=== PATIENT | male | born 1975 | race Hispanic/Latino ===

== ENCOUNTER 2019-06-11 21:29 | Inpatient (IN) | payer BC, OTHER ==
[~2019-06-11] VITALS: Ht 175.3 cm; Wt 118.2 kg
[~2019-06-11 21:29] MED LIST: FENO135C4 PO; GLYB1TAB3 PO; GLYB1TAB32 PO; LEVO500T2 PO; LISI40TA4 PO; PIOG45TA64 PO; TRAM50TA4 PO
[2019-06-11] MEDS ORDERED: ACETAMINOPHEN EXTRA STRENGTH 500 MG TABLET ONE (22:19)
[2019-06-11] MEDS ORDERED: KETOROLAC TROMETHAMINE 30MG/ML ONE (22:19)
[2019-06-11] MEDS ORDERED: MORPHINE SULFATE 4 MG/1ML SYG ONE (22:19)
[2019-06-11] MEDS ORDERED: SODIUM CHLORIDE 0.9% 1000ML 1,000 ML IV ONE (22:20)
[2019-06-11 22:23] LABS: BASOPHILS % (AUTO) 0.2 % (0.0-5.0); EOSINOPHILS % (AUTO) 0.8 % (0.0-8.0); HEMATOCRIT 35.5 % (42-54); LYMPHOCYTES % (AUTO) 13.3 % (21.0-51.0); MEAN CORPUSCULAR HGB CONC 33.5 g/dL (32.0-36.0); MEAN CORPUSCULAR VOLUME 89.4 fL (79-99); MONOCYTES % (AUTO) 7.4 % (3.0-13.0); NEUTROPHILS % (AUTO) 77.9 % (40.0-77.0); PLATELET COUNT (AUTO) 197 K/uL (130-400); RED BLOOD CELL COUNT(AUTO) 3.97 MIL/uL (4.50-6.20); RED CELL DISTRIBUTION WIDTH 13.1 % (11.0-15.5); WHITE BLOOD COUNT (AUTO) 10.3 K/uL (4.8-10.8)
[2019-06-11 22:24] LABS: APPEARANCE,URINE Clear (CLEAR); BILIRUBIN,URINE Negative (NEGATIVE); COLOR,URINE Yellow (YELLOW); GLUCOSE, URINE (UA) >=1000 mg/dL (NEGATIVE); KETONES,URINE Negative (NEGATIVE); LEUKOCYTE ESTERASE ,URINE Negative (NEGATIVE); NITRATE,URINE Negative (NEGATIVE); OCCULT BLOOD,URINE Trace (NEGATIVE); PROTEIN,URINE Negative (NEGATIVE)
[2019-06-11 22:32] LABS: BACTERIA,URINE Few /HPF (None Seen); MUCUS,URINE Few LPF (None Seen); SQUAMOUS EPITHELIAL CELL,UR 0-2 /HPF (0-2)
[2019-06-11 22:38] LABS: CREATININE 1.3 mg/dL (0.5-1.5); POTASSIUM 3.8 mmol/L (3.5-5.1)
[2019-06-11] MEDS ORDERED: CEFTRIAXONE SODIUM 2 GM VIAL ONE (23:04)
[2019-06-11] MEDS ORDERED: SODIUM CHLORIDE 0.9% 100 ML IV ONE (23:05)
[2019-06-11] MEDS ORDERED: INSULIN HUMULIN R 100 UNIT/ML 3ML ONE (23:05)
[2019-06-11] MEDS ORDERED: DOXYCYCLINE HYCLATE 100 MG TABLET PO ONE (23:31)
[2019-06-12] MEDS ORDERED: SODIUM CHLORIDE 0.9% 1000ML 1,000 ML IV SCH (01:15)
[2019-06-12] MEDS ORDERED: SODIUM CHLORIDE 0.9% 1000ML 1,000 ML IV ONE (02:02)
[2019-06-12 04:00] VITALS: BP 119/60
[2019-06-12 08:00] VITALS: BP 122/71
[2019-06-12] MEDS: CEFTRIAXONE SODIUM 1 GM IVP SCH (08:30)
[2019-06-12] MEDS ORDERED: TRAMADOL HCL 50 MG TABLET PO PRN (08:30)
[2019-06-12] MEDS: SODIUM CHLORIDE 0.9% 1000ML 1,000 ML IV SCH ×2 (08:30→22:18)
[2019-06-12] MEDS: CLINDAMYCIN 600 MG/D5% WATER 50 ML IV SCH ×3 (11:01→17:16)
[2019-06-12] MEDS: INSULIN HUMULIN R 100 UNIT/ML 3ML SQ SCH ×3 (11:04→22:20)
[2019-06-12 11:44] VITALS: BP 130/74
--- NOTE | 2019-06-12 14:50 | NUR ---
INITIAL Patient lives with spouse, Rosetta Zhu, [phone]. No home services. DME: glucometer (no insulin). 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 He is able to complete ADL's and drives. PCP is Dr. Pineda. Pharmacy is [facility] in [place]. DCP is home. Addendum: 06/12/19 at 1452 by TIANA HONG SS Amended: Links added.
[2019-06-12] MEDS ORDERED: ATOR20TA65 PO (15:39)
[2019-06-12] MEDS ORDERED: FENO145T26 PO (15:40)
[2019-06-12 15:52] VITALS: BP 126/61
[2019-06-12] MEDS: GLYBURIDE/METFORMIN HCL 5/500MG TABLET PO SCH (17:15)
[2019-06-12 19:49] VITALS: BP 132/62
[2019-06-12] MEDS ORDERED: PHARMACY COMMUNICATION MISC SCH (20:00)
[2019-06-12] MEDS: ATORVASTATIN CALCIUM 20 MG TABLET PO SCH (22:18)
[2019-06-12 23:57] VITALS: BP 120/65
[2019-06-13] MEDS: CLINDAMYCIN 600 MG/D5% WATER 50 ML IV SCH ×4 (00:06→16:55)
[2019-06-13 04:00] VITALS: BP 119/65
[2019-06-13 06:04] LABS: CREATININE 1.1 mg/dL (0.5-1.5); POTASSIUM 3.7 mmol/L (3.5-5.1)
[2019-06-13 06:18] LABS: BAND NEUTROPHILS % (MANUAL) 3 % (0-2); LYMPHOCYTES % (MANUAL) 20 % (22-44); MAN.DIFF COMMENT-IMPRESSION MANUAL DIFFERENTIAL; MONOCYTES % (MANUAL) 5 % (2-9); REACTIVE LYMPHOCYTES 1 % (0-0); SEGMENTED NEUTROPHILS % 71 % (40-70)
[2019-06-13 06:22] LABS: HEMATOCRIT 31.4 % (42-54); MEAN CORPUSCULAR HEMOGLOBIN 29.6 pg (27.0-33.0); MEAN CORPUSCULAR HGB CONC 32.5 g/dL (32.0-36.0); PLATELET COUNT (AUTO) 189 K/uL (130-400); RED BLOOD CELL COUNT(AUTO) 3.45 MIL/uL (4.50-6.20); RED CELL DISTRIBUTION WIDTH 13.2 % (11.0-15.5); WHITE BLOOD COUNT (AUTO) 8.4 K/uL (4.8-10.8)
[2019-06-13] MEDS: INSULIN HUMULIN R 100 UNIT/ML 3ML SQ SCH ×4 (06:45→21:00)
[2019-06-13 08:00] VITALS: BP 132/72
[2019-06-13] MEDS: PIOGLITAZONE HCL 45 MG TAB PO SCH (08:27)
[2019-06-13] MEDS: GLYBURIDE/METFORMIN HCL 5/500MG TABLET PO SCH ×2 (08:27→16:55)
[2019-06-13] MEDS: FENOFIBRATE NANOCRYSTALLIZED 145 MG TAB PO SCH (08:27)
[2019-06-13] MEDS: LISINOPRIL 40 MG TABLET PO SCH (08:27)
[2019-06-13] MEDS: CEFTRIAXONE SODIUM 1 GM IVP SCH (08:27)
[2019-06-13 11:41] VITALS: BP 115/64
[2019-06-13] MEDS: SODIUM CHLORIDE 0.9% 1000ML 1,000 ML IV SCH ×2 (11:43→21:09)
[2019-06-13 16:00] VITALS: BP 121/67
[2019-06-13 19:57] VITALS: BP 124/76
[2019-06-13] MEDS: ATORVASTATIN CALCIUM 20 MG TABLET PO SCH (21:07)
[2019-06-14] VITALS (7 sets, daily range): BP systolic 110–137; BP diastolic 55–74
[2019-06-14] MEDS: CLINDAMYCIN 600 MG/D5% WATER 50 ML IV SCH ×5 (00:58→21:56)
[2019-06-14 05:34] LABS: HEMATOCRIT 32.2 % (42-54); MEAN CORPUSCULAR HEMOGLOBIN 29.9 pg (27.0-33.0); MEAN CORPUSCULAR HGB CONC 32.9 g/dL (32.0-36.0); PLATELET COUNT (AUTO) 195 K/uL (130-400); RED BLOOD CELL COUNT(AUTO) 3.54 MIL/uL (4.50-6.20); RED CELL DISTRIBUTION WIDTH 12.8 % (11.0-15.5); WHITE BLOOD COUNT (AUTO) 7.7 K/uL (4.8-10.8)
[2019-06-14 05:40] LABS: BAND NEUTROPHILS % (MANUAL) 2 % (0-2); BASOPHILS % (MANUAL) 1 % (0-2); EOSINOPHILS % (MANUAL) 1 % (1-6); LYMPHOCYTES % (MANUAL) 20 % (22-44); MAN.DIFF COMMENT-IMPRESSION MANUAL DIFFERENTIAL; MONOCYTES % (MANUAL) 3 % (2-9); PLATELET MORPHOLOGY COMMENT ADEQUATE; SEGMENTED NEUTROPHILS % 73 % (40-70)
[2019-06-14] MEDS: INSULIN HUMULIN R 100 UNIT/ML 3ML SQ SCH ×4 (05:40→21:00)
[2019-06-14 05:56] LABS: ALBUMIN 2.4 g/dL (3.5-5.0); BILIRUBIN,TOTAL 0.3 mg/dL (0.2-1.0); CREATININE 1.2 mg/dL (0.5-1.5); POTASSIUM 3.6 mmol/L (3.5-5.1)
[2019-06-14] MEDS: LISINOPRIL 40 MG TABLET PO SCH (08:25)
[2019-06-14] MEDS: FENOFIBRATE NANOCRYSTALLIZED 145 MG TAB PO SCH (08:25)
[2019-06-14] MEDS: GLYBURIDE/METFORMIN HCL 5/500MG TABLET PO SCH ×2 (08:47→17:26)
[2019-06-14] MEDS: CEFTRIAXONE SODIUM 1 GM IVP SCH (08:48)
[2019-06-14] MEDS: PIOGLITAZONE HCL 45 MG TAB PO SCH (09:07)
--- NOTE | 2019-06-14 10:00 | NUR ---
PT AAO X 3 REVIEW PLAN OF CARE, ASK PT IF HIS SWELLING HAD COME DOWN, . PT STATED THAT HE HAS HIS SCROTUM ELEVATED UP ON TOWELS . . NO PAIN VOICED , WILL GET PT A SCROTOL SUPPORT FOR HIM TO WEAR, CALL LIGHT IN REACH, ,
[2019-06-14] MEDS: SODIUM CHLORIDE 0.9% 1000ML 1,000 ML IV SCH (17:14)
[2019-06-14 19:55] LABS: APPEARANCE,URINE Clear (CLEAR); BILIRUBIN,URINE Negative (NEGATIVE); COLOR,URINE Yellow (YELLOW); GLUCOSE, URINE (UA) 500 mg/dL (NEGATIVE); KETONES,URINE Negative (NEGATIVE); LEUKOCYTE ESTERASE ,URINE Trace (NEGATIVE); NITRATE,URINE Negative (NEGATIVE); OCCULT BLOOD,URINE Negative (NEGATIVE); PH,URINE 6.5 (5.0-8.0); PROTEIN,URINE Negative (NEGATIVE)
[2019-06-14 20:01] LABS: BACTERIA,URINE Few /HPF (None Seen); RBC,URINE None Seen /HPF (0-1)
[2019-06-14] MEDS: ATORVASTATIN CALCIUM 20 MG TABLET PO SCH (21:55)
[2019-06-15 04:20] VITALS: BP 119/68
[2019-06-15 05:00] LABS: HEMATOCRIT 29.8 % (42-54); MEAN CORPUSCULAR HGB CONC 33.2 g/dL (32.0-36.0); MEAN CORPUSCULAR VOLUME 90.3 fL (79-99); PLATELET COUNT (AUTO) 212 K/uL (130-400); RED CELL DISTRIBUTION WIDTH 12.9 % (11.0-15.5); WHITE BLOOD COUNT (AUTO) 6.5 K/uL (4.8-10.8)
[2019-06-15] MEDS: SODIUM CHLORIDE 0.9% 1000ML 1,000 ML IV SCH (06:23)
[2019-06-15] MEDS: CLINDAMYCIN 600 MG/D5% WATER 50 ML IV SCH (06:23)
[2019-06-15] MEDS: INSULIN HUMULIN R 100 UNIT/ML 3ML SQ SCH ×2 (06:32→11:30)
[2019-06-15 07:20] LABS: CREATININE 1.2 mg/dL (0.5-1.5); POTASSIUM 3.6 mmol/L (3.5-5.1)
[2019-06-15] MEDS: GLYBURIDE/METFORMIN HCL 5/500MG TABLET PO SCH (07:26)
[2019-06-15] MEDS: LISINOPRIL 40 MG TABLET PO SCH (07:26)
[2019-06-15] MEDS: FENOFIBRATE NANOCRYSTALLIZED 145 MG TAB PO SCH (07:27)
[2019-06-15] MEDS: CEFTRIAXONE SODIUM 1 GM IVP SCH (07:27)
[2019-06-15 07:30] VITALS: BP 116/55
[2019-06-15] MEDS: PIOGLITAZONE HCL 45 MG TAB PO SCH (09:31)
[2019-06-15] MEDS ORDERED: AMOX-429 PO (09:46)
--- NOTE | 2019-06-15 11:45 | NUR ---
DISCHARGE SUMMARY WAS DONE ,PER DISCHARGE NURSE Kevin BEST LVN, PT TO FOLLOW WITH PRIVATE DR, AND APPT. TO FOLLOW WITH DR. MONCADA SL TO HIS LAC WAS DC, SM PRESSURE DRSG APPLICATION ON .
== END 2019-06-15 11:45 | disposition home or self-care (01) | DRG 728 ==
LOC: EDH 21:29 → EDHIP 06-12 00:55 → OBSVTOIN 06-12 00:55 → 4DH 06-12 02:09
PROVIDERS: ADMIT Internal Medicine Nephrology; ATTEND Internal Medicine Nephrology
DX: N45.3 Epididymo-orchitis (principal); E87.1 Hypo-osmolality and hyponatremia; I10 Essential (primary) hypertension; E78.00 Pure hypercholesterolemia, unspecified; E66.9 Obesity, unspecified; E78.5 Hyperlipidemia, unspecified; N43.3 Hydrocele, unspecified; E11.9 Type 2 diabetes mellitus without complications; Z91.19 Patient's noncompliance with other medical treatment and regimen; Z68.38 Body mass index [BMI] 38.0-38.9, adult
CPT/HCPCS: 36415; 76870; 80048; 80053; 81001; 82948; 83605; 85025; 85027; 87040; 87088; G0378; J0696; J1815; J1885; J2270; J3490; J7030

== ENCOUNTER 2025-03-26 16:54 | Emergency (ER) | payer BC ==
[~2025-03-26] VITALS: Ht 152.4 cm; Wt 114.3 kg
[~2025-03-26 16:54] MED LIST changes: +AMOX-429 PO; +ATOR20TA65 PO; -FENO135C4 PO; +FENO145T26 PO; +GLYB-173 PO; -GLYB1TAB32 PO; -LEVO500T2 PO; +LISI40TA15 PO; -LISI40TA4 PO; -TRAM50TA4 PO
--- NOTE | 2025-03-26 17:15 | ERN ---
ED Note History of Present Illness Stated Complaint: FEVER Chief Complaint: Flu Symptoms Time Seen by MD: 17:01 Dictation: PATIENT IS A 49-YEAR-OLD MALE COMING IN TODAY WITH COMPLAINTS OF FEVER CHILLS AND FLU-LIKE SYMPTOMS ONSET THIS MORNING WHILE HE WAS AT WORK. 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 HE DENIES NAUSEA VOMITING NO DIARRHEA NO LOSS OF TASTE OR SMELL. STATES HE WENT TO A DOCTOR TODAY WHO SWABBED HIM FOR FLU AND COVID, DID NOT GIVE HIM ANY RESULTS. SHE STATED SHE WAS GOING TO GIVE HIM ANTIBIOTICS, TAMIFLU AND SOMETHING FOR FEVER UNTIL THE RESULTS CAME BACK. HE WAS NOT HAPPY WITH HER MANAGEMENT IN THE CLINIC AND CAME TO THE EMERGENCY ROOM FOR FURTHER EVALUATION AND WANTS A MORE COMPREHENSIVE WORK UP. Allergies: Coded Allergies: No Known Allergies (Verified Allergy, Unknown, 02/20/15) Home Meds Active Scripts Amoxicillin/Potassium Clav (Augmentin 875-125 Tablet) 1 Each Tablet, 1 EACH PO BID for 7 Days, #15 TAB Prov:LG SHAY MD 06/15/19 Reported Medications Fenofibrate Nanocrystallized (Fenofibrate) 145 Mg Tablet, 145 MG PO DAILY, TAB 06/12/19 Atorvastatin Calcium (Atorvastatin Calcium) 20 Mg Tablet, 20 MG PO HS, TAB 06/12/19 Pioglitazone HCl (Pioglitazone HCl) 45 Mg Tablet, 45 MG PO DAILY, TAB 02/21/15 Glyburide/Metformin HCl (Glyburide-Metformin 5-500 mg) 1 Each Tablet, 2 EACH PO HS, TAB 02/21/15 Glyburide/Metformin HCl (Glyburide/Metformin 5/500Mg) 1 Tab Tablet, 2 TAB PO [id number], TAB 02/21/15 Lisinopril (Lisinopril) 40 Mg Tablet, 40 MG PO DAILY, TAB 02/21/15 Past Medical History Past Medical History: Diabetes-Type II Surgical History: None RN Note Reviewed/Agreed w/PFSH: Yes Review of System Dictation CONSTITUTIONAL: NEGATIVE EXCEPT FOR HPI FEVER CHILLS/BODY ACHES HEAD/FACE: NEGATIVE EXCEPT FOR HPI EENT: NEGATIVE EXCEPT FOR HPI RESPIRATORY: NEGATIVE EXCEPT FOR HPI GASTROINTESTINAL/ABDOMINAL: NEGATIVE EXCEPT FOR HPI GENITOURINARY: NEGATIVE EXCEPT FOR HPI MUSCULOSKELETAL: NEGATIVE EXCEPT FOR HPI INTEGUMENTARY: NEGATIVE EXCEPT FOR HPI NEUROLOGICAL/PSYCH: NEGATIVE EXCEPT FOR HPI HEMATOLOGIC/LYMPHATIC: NEGATIVE EXCEPT FOR HPI ALL SYSTEMS NEGATIVE, EXCEPT NOTED ABOVE. 13 POINT REVIEW OF SYSTEMS ASSESSED AND ALL NEGATIVE EXCEPT FOR ABOVE. Initial Vital Sign VS Vital Signs Date Time Temp Pulse Resp B/P (MAP) Pulse Ox O2 Delivery O2 Flow Rate FiO2 03/26/25 16:55 100.0 125 18 140/81 99 03/26/25 19:13 Room Air* 0 21 Physical Exam Dictation VITAL SIGNS REVIEWED GENERAL APPEARANCE: ALERT, ORIENTED X 3, MILD ACUTE DISTRESS, WELL DEVELOPED, NOURISHED. OBESE HEAD AND FACE: NON-TRAUMATIC. EYES: PERRL, PINK CONJUNCTIVAS, EYELID NO TRAUMA, ANTERIOR CHAMBER WITH ARCUS SENILIS. EARS: PINNAS INTACT AND NO SIGNS OF TRAUMA OR ERYTHEMA EAR CANALS CLEAR AND NO DISCHARGE TM NO ERYTHEMA NOSE: N CLEAR ISCHARGE, NO BLEEDING. OROPHARYNX: MOUTH NORMAL, TONGUE PINK, PHARYNX CLEAR,N MILD PHARYNGEAL ERYTHEMA, TONSILS NO EXUDATES, NO ABSCESSES NOTED, MUCOUS MEMBRANE MOIST UVULA MIDLINE, VOICE IS CLEAR NECK: SUPPLE, NON-TENDER, NO THYROMEGALY, NO MASSES, NO JVD, NO BRUITS BREAST:DEFERRED CHEST:NO TENDERNESS, NO CREPITUS, NO PARADOXICAL MOVEMENT, NO RETRACTIONS LUNGS:CLEAR, WELL-VENTILATED, SYMMETRIC, NO RALES, NO WHEEZING, NO RHONCHI, NO STRIDOR, GOOD BREATH SOUNDS BILATERALLY HEART: REGULAR RATE, REGULAR RHYTHM, NO MURMUR, NO GALLOPS VASCULAR: NO PERIPHERAL EDEMA, ABDOMEN: SOFT, POSITIVE BOWEL SOUNDS, NONDISTENDED, NO GUARDING, NONTENDER, NO REBOUND, NO MASSES NO HEPATOMEGALY, NO SPLENOMEGALY, NO CORDON'S SIGN, NO HERNIAS. RECTAL: DEFERRED GENITAL: DEFERRED NEUROLOGICAL: NORMAL SPEECH, MOTOR FUNCTION INTACT, SENSORY FUNCTION INTACT MUSCULOSKELETAL: NECK NONTENDER, FULL RANGE OF MOTION, BACK NONTENDER, FULL RANGE OF MOTION, EXTREMITIES: NONTENDER, FULL RANGE OF MOTION SKIN: COLOR PINK, DRY, NO TURGOR, NO RASH, NO LACERATIONS, NO ABRASIONS, NO CONTUSIONS. LYMPHATIC: DEFERRED Results (Laboratory/Radiology) Laboratory/Radiology Laboratory Tests Test 03/26/25 17:21 03/26/25 17:33 White Blood Count 14.2 K/uL (4.8-10.8) H Red Blood Count 4.32 MIL/uL (4.50-6.20) L Hemoglobin 13.4 g/dL (14.0-18.0) L Hematocrit 39.2 % (42-54) L Mean Corpuscular Volume 90.7 fL (79-99) Mean Corpuscular Hemoglobin 31.0 pg (27.0-33.0) Mean Corpuscular Hemoglobin Concent 34.2 g/dL (32.0-36.0) Red Cell Distribution Width 13.7 % (11.0-15.5) Platelet Count 214 K/uL (130-400) Mean Platelet Volume 11.1 fL (7.5-10.5) H Immature Granulocyte % (Auto) 0.6 % (0-1) Neutrophils (%) (Auto) 86.1 % (40.0-77.0) H Lymphocytes (%) (Auto) 6.0 % (21.0-51.0) L Monocytes (%) (Auto) 6.3 % (3.0-13.0) Eosinophils (%) (Auto) 0.6 % (0.0-8.0) Basophils (%) (Auto) 0.4 % (0.0-5.0) Neutrophils # (Auto) 12.2 K/uL (1.8-7.7) H Lymphocytes # (Auto) 0.9 K/uL (1.0-4.8) L Monocytes # (Auto) 0.9 K/uL (0.1-1.0) Eosinophils # (Auto) 0.09 K/uL (0.00-0.70) Basophils # (Auto) 0.05 K/uL (0.00-0.20) Absolute Immature Granulocyte (auto 0.08 K/uL (0-1) Nucleated Red Blood Cells 0.0 % (0.0-0.19) White Cell Morphology Comment See comments Sodium Level 136 mmol/L (136-145) Potassium Level 3.8 mmol/L (3.5-5.1) Chloride Level 104 mmol/L (101-111) Carbon Dioxide Level 21 mmol/L (21-32) Blood Urea Nitrogen 20 mg/dL (7-18) H Creatinine 1.5 mg/dL (0.5-1.3) H Glomerular Filtration Rate Calc 56 mL/min (>90) Random Glucose 202 mg/dL (70-105) H Lactic Acid Level 2.1 mmol/L (0.8-2.5) Total Calcium 9.4 mg/dL (8.5-10.1) Urine Color LIGHT-YELLOW (YELLOW) Urine Appearance CLEAR (CLEAR) Urine pH 5.0 (5.0-8.0) Urine Specific [place] 1.036 (1.001-1.031) Urine Protein NEGATIVE mg/dL (NEGATIVE) Urine Glucose (UA) >=1000 mg/dL (NEGATIVE) H Urine Ketones NEGATIVE mg/dL (NEGATIVE) Urine Occult Blood +- (TRACE) (NEGATIVE) H Urine Nitrate NEGATIVE (NEGATIVE) Urine Bilirubin NEGATIVE mg/dL (NEGATIVE) Urine Urobilinogen 0.2 mg/dL (0.2-1.0) Urine Leukocyte Esterase 75 Pilar/uL (NEGATIVE) H Urine RBC 2-5 /HPF (0-1) H Urine WBC 51-100 /HPF (0-1) H Urine Bacteria None /HPF (None Seen) Influenza Type A Antigen Negative For Type A Influenza Type B Antigen Negative For Type B SARS-CoV-2 Antigen (Rapid) PRESUMPTIVE NEGATIVE Group A Streptococcus Rapid positive (NEGATIVE) *A Labs Reviewed?: Yes ED Course ED Course Orders Procedure Category Date Status Time Covid19 (Sars Antigen LAB 03/26/25 Complete Rapid) 17:10 Influenza Type A & B, LAB 03/26/25 Complete Rapid 17:10 Rapid (Group A Strep) LAB 03/26/25 Complete 17:10 Urinalysis Profile LAB 03/26/25 Complete 17:10 Cbc With Differential LAB 03/26/25 Complete 17:10 Basic Metabolic Panel LAB 03/26/25 Complete 17:10 Blood Cult KARLA 03/26/25 In Process 17:12 Lactic Acid LAB 03/26/25 Complete 17:12 Ibuprofen 800 Mg Tab PHA 03/26/25 Complete (Motrin) 17:30 Culture Urine KARLA 03/26/25 In Process 17:47 Amox/Clav 875/125mg PHA 03/26/25 Logged Tab (Augmentin 875-1 20:30 Current Medications Medications (Trade) Dose Ordered Sig/Chuckie Route PRN Reason Start Time Stop Time Status Last Admin Dose Admin Amoxicillin/ Clavulanate Potassium (Augmentin 875-125 Tablet) 1 each ONCE ONCE PO 03/26/25 20:30 03/26/25 20:31 UNV Ibuprofen (moTRIN) 800 mg ONCE ONCE PO 03/26/25 17:30 03/26/25 17:31 DC 03/26/25 17:24 Vital Signs Date Time Temp Pulse Resp B/P (MAP) Pulse Ox O2 Delivery O2 Flow Rate FiO2 03/26/25 19:13 99.0 92 18 132/74 99 Room Air* 0 21 03/26/25 17:24 100.0 03/26/25 16:55 100.0 125 18 140/81 99 2007/patient will be discharged home with a acute streptococcal tonsillitis, acute UTI, uncontrolled diabetes, dehydration, fever. He will be given [id number] in the emergency room Discharged home with controlled meds and told to see his doctor Saturday without fail and no work until cleared by his Medical Decision Making MDM MDM: Differential diagnosis: SARS COVID/influenza strep//UTI/electrolyte imb alance/dehydration/viral syndrome Rationale: Tests considered and ordered secondary to shared decision making include: Labs/r Previous outside records reviewed: Old ER visits. Risk of complication and/or morbidity or mortality of patient management: None Medications-Per medication reconciliation Need for hospitalization: Patient does not meet criteria for hospitalization. None Need for emergency major/minor surgery: No There are no social concerns with this patient. Prescription drug management Augmentin Prescriptions will include symptomatic care Patient's prior external medical records from other ER visits were reviewed by me as indicated. Prior testing and results from previous visits were reviewed. Prior tests were taken into account with medical decision making and resource utilization, independent historian/historians were used to obtain complete medical history. I independently interpreted the test that were performed, results were reviewed by me and considered findings on radiology if ordered. Medical management and examination interpretation discussions were had by me with other qualified healthcare professionals as indicated for the patient's care. DX & DISP Disposition: Discharge Departure Impression: Primary Impression: Acute streptococcal tonsillitis Additional Impressions: Acute cystitis, Dehydration, Uncontrolled diabetes mellitus, Fever Condition: Stable Scripts Ibuprofen (Ibuprofen 800 mg Tab) 800 Mg Tab 800 MG PO Q8H PRN for fever or pain, #30 TAB 0 Refills Prov: JOHN ROJO TRANSLATIONAL SPECIALIST 03/26/25 Amoxicillin/Potassium Clav (Amox Tr-K Clv 875-125 mg Tab) 875 Mg-125 Mg Tablet 1 EACH PO BID for 7 Days, #14 TAB 0 Refills Prov: JOHN ROJO 03/26/25 Additional Instructions: Follow-up with primary care provider in 1 to 2 days. Take medications as directed here in the emergency room. Okay to continue home medications unless otherwise discussed during your visit in the emergency room today. Return to your nearest emergency room if symptoms worsen or if there is no improvement. Call 911 if you need immediate assistance. Take Tylenol or Motrin [id number] as needed and if no contraindications are present. Increase oral hydration. A wound culture or urine culture was ordered here in the emergency room department please follow-up with primary care provider and advise them to get repeat ports from our facility. If you had any Sher wrap/splints that were applied here, please do not remove them until you see your primary care or specialty. Referrals: GHASSAN LEVINE (PCP) Time of Disposition: 20:08 I have reviewed the case, and I agree with, Diagnosis and Plan JOHN ROJO Mar 26, 2025 17:14
[2025-03-26 17:24] VITALS: TEMP 100
[2025-03-26 17:32] LABS: IMMATURE GRANULOCYTE ABSOLUTE 0.08 K/uL (0-1); NUCLEATED RED BLOOD CELLS 0.0 % (0.0-0.19); PLATELET COUNT (AUTO) 214 K/uL (130-400); RED BLOOD CELL COUNT(AUTO) 4.32 MIL/uL (4.50-6.20); RED CELL DISTRIBUTION WIDTH 13.7 % (11.0-15.5); WHITE BLOOD COUNT (AUTO) 14.2 K/uL (4.8-10.8)
[2025-03-26 17:41] LABS: CREATININE 1.5 mg/dL (0.5-1.3); GLOMERULAR FILTR. RATE CALC 56.0 mL/min (>90); GLUCOSE,RANDOM 202.0 mg/dL (70-105); SODIUM SERUM 136.0 mmol/L (136-145); UREA NITROGEN, BLOOD 20.0 mg/dL (7-18)
[2025-03-26 17:43] LABS: APPEARANCE,URINE CLEAR (CLEAR); GLUCOSE, URINE (UA) >=1000 mg/dL (NEGATIVE); LEUKOCYTE ESTERASE ,URINE 75 Leu/uL (NEGATIVE); NITRATE,URINE NEGATIVE (NEGATIVE); OCCULT BLOOD,URINE +- (TRACE) (NEGATIVE)
[2025-03-26 17:47] LABS: ADD UA MICROSCOPIC YES
[2025-03-26 17:53] LABS: RAPID GROUP A STREP positive (NEGATIVE)
[2025-03-26 18:03] LABS: COVID19 (SARS ANTIGEN RAPID) PRESUMPTIVE NEGATIVE (NEGATIVE)
[2025-03-26 18:04] LABS: INFLUENZA TYPE A Negative For Type A (NEGATIVE); INFLUENZA TYPE B Negative For Type B (NEGATIVE)
[2025-03-26] MEDS ORDERED: IBUP-2077 PO (20:10)
[2025-03-26] MEDS ORDERED: AMOX1TAB16 PO (20:10)
[2025-03-26 20:18] VITALS: BP 142/68; PULSE 93; RESP 18; TEMP 98.8; O2SAT 99
[2025-03-26] MEDS: AMOX/CLAV 875/125MG TAB PO ONE (20:20)
== END 2025-03-26 20:29 | disposition home or self-care (01) ==
LOC: EDH 16:54
DX: J03.00 Acute streptococcal tonsillitis, unspecified (principal); N30.00 Acute cystitis without hematuria; E86.0 Dehydration; E11.65 Type 2 diabetes mellitus with hyperglycemia; Z79.899 Other long term (current) drug therapy; Z20.822 Contact with and (suspected) exposure to COVID-19; R50.9 Fever, unspecified; Z79.84 Long term (current) use of oral hypoglycemic drugs
CPT/HCPCS: 36415; 80048; 81001; 83605; 85025; 87040; 87086; 87186; 87426; 87804; 87880; 99283